=== PATIENT | male | born 1970 | race Two or more races ===

== ENCOUNTER 2021-09-25 10:40 | Outpatient (CLI) | payer OTHER | END 2021-09-25 10:46 | disposition home or self-care (01) | LOC: SONOGRAMA 10:40 | PROVIDERS: ATTEND Pathology Anatomic Pathology & Clinical Pathology | DX: D34 Benign neoplasm of thyroid gland (principal); E04.8 Other specified nontoxic goiter ==

== ENCOUNTER 2022-07-16 08:33 | Outpatient (CLI) | payer OTHER | END 2022-07-16 08:35 | disposition home or self-care (01) | LOC: SONOGRAMA 08:33 | PROVIDERS: ATTEND Pathology Anatomic Pathology | DX: E04.1 Nontoxic single thyroid nodule (principal); D34 Benign neoplasm of thyroid gland ==